=== PATIENT | male | born 1935 | race Caucasian/White ===

== ENCOUNTER 2016-12-19 00:28 | Inpatient (IN) | payer MEDICARE ==
[~2016-12-19] VITALS: Ht 170.2 cm; Wt 103.2 kg
[~2016-12-19 00:28] MED LIST: ACETAMINOPHEN500 MG PO; AMLODIPINE BESY10 MG PO; CENTRUM1 TAB PO; CLONAZEPAM1 MG PO; GLIPIZIDE5 MG PO; LOSARTAN POTAS100 MG PO; MAGNACAPS100 MG PO; SIMVASTATIN20 MG PO; TAMIFLU30 MG PO; TERAZOSIN HCL1 MG PO; TRAMADOL HCL50 MG PO; WARFARIN SODIUM5 MG PO; [UNRECOGNIZED DRUG - OTHER] PO
--- NOTE | 2016-12-19 03:06 | ED CLINICAL REPORT ---
Clinical Report - Physicians/Mid Levels [facility] [address] [place] [address] 12/19/2016 0:29 Patient: NOEMÍ SOMMER I Arrived- By ambulance. Historian- patient and EMS personnel. HISTORY OF PRESENT ILLNESS Chief Complaint: DYSPNEA. This started Past 2 days and is still present and worsening. It was abrupt in onset and has been constant but is not gone now. The dyspnea is described as moderate and is worsened by exertion and is improved by rest. The patient has had sputum production and a cough. No chest pain or discomfort, anxiety, tingling or numbness. He has had moderate right foot swelling. (patient reports to the right side of the leg is swollen for the past several weeks Patient reports that he had had a negative ultrasound of the right lower extremity. Patient was told by his doctor that it was "lymphedema. "). Similar symptoms previously: None. Recent medical care: The patient was seen recently in a clinic. REVIEW OF SYSTEMS No sore throat, nasal discharge, sinus drainage, nausea or vomiting. No headache. All systems otherwise negative, except as recorded above. PAST HISTORY See nurses notes. Medications: Metoprolol Tartrate Oral. Lasix Oral. Simvastatin Oral. TERAZOSIN HCl Oral. AmLODIPine Besylate Oral. ClonazePAM Oral. Coumadin Oral. Glipizide Oral. Losartan Potassium Oral. Magnesium Aspartate Oral. Allergies: No Known Drug Allergy. SOCIAL HISTORY Never smoker. No alcohol use or drug use. No recent travel. Is a local resident. ADDITIONAL NOTES The nursing notes have been reviewed. PHYSICAL EXAM Vital Signs: 12/19/2016 00:43 BP: 136/52. HR: 48. RR: 20. O2 saturation: 95%. Blood pressure normal. Oxygen saturation normal. Appearance: Alert. No acute distress. Eyes: Pupils equal, round and reactive to light. Eyes normal inspection. ENT: Ears normal. Nose normal. Pharynx normal. Uvula midline. Neck: Normal inspection. No jugular venous distention. Neck supple. No JVD. CVS: Bradycardia. Heart sounds normal. Pulses normal. Rhythm normal. Respiratory: No respiratory distress. No respiratory distress. Breath sounds normal. No splinting, wheezes, stridor, rales or rhonchi. Abdomen: Soft and nontender. No organomegaly. Back: Normal inspection. Skin: Skin warm and dry. Normal skin color. No rash. Normal skin turgor. Extremities: Bilateral moderate pitting edema of the lower extremities; 3+ pitting edema of the right lower extremity; 2+ pitting edema of the left lower extremity. Extremities exhibit normal ROM. No calf tenderness. Neuro: Oriented X 3. No motor deficit. No sensory deficit. LABS, X-RAYS, AND EKG EKG: Abnormal rhythm present. Narrow-complex bradycardia. Abnormal P waves. Normal ST and T waves, QT and QTc. Unable to see P waves. Slow a fib or heart block. The study has been interpreted contemporaneously by me. The study has been independently viewed by me. The EKG appears to be a good tracing. Chest X-ray: No acute disease. Great vessels normal. No infiltrate. Views: PA. Technique: good. The X-rays were independently viewed by me and interpreted contemporaneously by me. CTA Pulmonary Arteries: right lung PE, small. No other acute osseous abnormalities. The study was independently viewed by me and interpreted by the radiologist. The study was discussed with the radiologist (via fax). Laboratory Tests: CBC w Diff: (KONRAD: 12/19/2016 00:36) ( MsgRcvd 12/19/2016 00:46) Final results Test Result Flag Units (Reference) WHITE BLOOD COUNT 4.1 L K/uL (4.5-11.5) RED BLOOD COUNT 2.86 L M/uL (4.50-5.90) HEMOGLOBIN 9.4 L gm/dL (13.5-17.5) HEMATOCRIT 28.3 L % (41.0-53.0) MEAN CELL VOLUME 99 fL (80-100) MEAN CORPUSCULAR HGB 33 pg (26-34) MEAN CORPUSCULAR HGB CONC 33 g/dL (31-37) RED CELL DISTRIBUTION WIDTH 18.5 H % (11.6-14.8) PLATELET COUNT 152 K/uL (150-400) NEUTROPHIL % 74.0 % (50-75) LYMPH % 12.3 L % (25-40) MONO % 11.4 % (3-14) EOSINOPHIL % 1.9 % (0-4) BASOPHIL % 0.4 % (0-2) PT with INR: (KONRAD: 12/19/2016 00:36) ( [facility] [place] 12/19/2016 00:56) Final results Test Result Flag Units (Reference) INR 3.1 H (0.8-1.2) Low Intensity Therapy: INR 1.5-2.0 PT range 18.5-23.1Mod.Intensity Therapy: INR 2.0-3.0 PT range 23.1-31.5High Intensity Therapy: INR 2.5-3.5 PT range 27.4-35.5High Intensity Therapy 2: INR 3.0-4.0 PT range 31.5-39.3 APTT 43 H SECONDS (24-34) D-DIMER QUANTITATIVE 2.20 H ug/mLFEU (0.27-0.52) The primary value of this quantitative assay relates toits negative predictive value (i.e. exclusion) of pulmonaryembolism/deep vein thrombosis/DIC.Elevated levels of d-dimer may also occur with:, age, cancer, inflammation, liver disease,post-op, infection, hematoma, coronary disease, peripheralarteriopathy, bleeding disorders and thrombolytic treatment.Results should be correlated with other clinical andradiological data.Testing Methodology: Latex Immunoassay BNP: (KONRAD: 12/19/2016 00:36) ( [facility] [place] 12/19/2016 01:05) Final results Test Result Flag Units (Reference) B-TYPE NATRIURETIC PEPTIDE 795 H pg/ml (5-100) CMP: (KONRAD: 12/19/2016 00:36) ( [facility] [place] 12/19/2016 01:02) Final results Test Result Flag Units (Reference) GLUCOSE 137 H mg/dL (70-110) BUN 42 H mg/dL (7-18) CREATININE 1.5 H mg/dL (0.6-1.3) Estimated GFR 47.50 mL/min Estimated GFR- 57.57 mL/min Note: Persistent reduction over 3 months in eGFR<60 mL/min/1.73 m2 defines CKD. Patients with eGFR values>=60 mL/min/1.73 m2 may also have CKD if evidence ofpersistent proteinuria. Additional information may be foundat [email or web address].org. SODIUM 143 mmol/L (136-145) POTASSIUM 4.5 mmol/L (3.5-5.1) CHLORIDE 109 H mmol/L (98-107) CARBON DIOXIDE 26 mmol/L (21-32) CALCIUM 8.1 L mg/dL (8.5-10.1) TOTAL PROTEIN 6.3 L g/dL (6.4-8.2) ALBUMIN 3.1 L g/dL (3.3-5.0) BILIRUBIN, TOTAL 0.3 mg/dL (0.0-1.0) ALKALINE PHOSPHATASE 110 U/L (46-116) AST (SGOT) 33 U/L (15-37) ALT (SGPT) 40 U/L (12-78) TROPONIN I <0.05 ng/mL (0.00-1.5) TROPONIN REFERENCE RANGE:<0.1 NEGATIVE0.1-1.5 INDETERMINANT>1.5 POSITIVE . Pulse Oximetry: 12/19/2016 03:14 O2 saturation: 94%. Interpretation: normal. PROGRESS AND PROCEDURES Course of Care: patient is an 81-year-old male with complex past medical history including atrial fibrillation, pulmonary fibrosis, hypertension, sleep apnea, and heart failure resenting for evaluation of shortness of breath. Patient is not reporting any chest pain on examination. In further discussion with patient, patient was recently started on metoprolol. Patient was recently admitted to the hospital over at [place] for back surgery. Patient describes spinal hematoma. Patient does not have any signs of neurovascular compromise at this time. Patient will be evaluated laboratory studies including EKG and chest x-ray. Patient is agreeable to the treatment plan. We'll also evaluate the patient's lower extremities for any signs of DVT. Patient has had 1 ultrasound of the right lower extremity for DVT. Based on current guidelines, ultrasound should be repeated. Patient's workup is otherwise unremarkable. Troponin is noted to be normal. D-dimer is elevated however. Patientwill need CT scan of thechest for evaluation of any acute intrathoracic process. Patient is noted to be severely bradycardic. Patient's has been otherwise hemodynamically normal. Patient has normal mentation. Pacer pads in place on the patient in case patient becomes unstable. Do not feelwe need to intervene with atropine or transcutaneous pacing at this time as the patient has good blood pressure and is having a normal mentation. Other etiologies for his shortness of breath more likely impending workup. Workup shows patient to have a pulmonary embolism on the right side of the chest. No other acute abnormalities noted. No pneumonia. Patient likely with shortness of breath secondary to pulmonary embolism as well as hypotension frombradycardia. Nitroglycerin has been given for the elevation in BNP which also should cause a reflex tachycardia and improved patient's symptoms in the emergency department. Because the patient's current symptoms, would feel patient needs to be admitted to the hospital. Patient with symptomatic bradycardia. Spoke with hospitalist will admit the patient. Patient is also on warfarin. Patient does not need any further treatment here in the emergency department forPE. Patient is noted to have an INR 3.1. Discussed with patient workup, diagnosis, and plan of care. All questions answered. The patient expressed understanding of these instructions and was agreeable to them. The patient was admitted without complication. Do not feel patient needs to be admitted to the intensive care unit. Patient is a no code. Critical care performed (60 minutes). Time is exclusive of separately billable procedures. Time includes: direct patient care, patient reassessment, coordination of patient care, interpretation of data (laboratory data, pulse oximetry and chest xrays), review of patient's medical records, medical consultation and documentation of patient care. Disposition: Discharged. Condition: good. CLINICAL IMPRESSION symptomatic bradycardia, acute acute pulmonary embolism right lung a fib, chronic dyspnea acute. (Electronically signed by Christos Davis Dr. 12/19/2016 8:06)
--- NOTE | 2016-12-19 03:06 | ED NURSING NOTES ---
Clinical Report - Nurses [facility] [address] [place] [address] 12/19/2016 0:29 Patient: NOEMÍ SOMMER I TRIAGE Triage time 0040. Acuity: LEVEL 2. Chief Complaint: SHORTNESS OF BREATH and DIFFICULTY BREATHING. Alert. No acute distress. (dyspnic). --00:48 Muna Menendez 00:43 12/19/16. BP: 136/52. HR: 48. RR: 20. O2 saturation: 95%. Pain level now 0/10. --00:48 Muna Menendez 00:51 12/19/16. Temp: 98.0 F. --00:51 Muna Menendez. Weight: 104.3 kg. Height/Length: 66.5 inches. BMI: 36.6. --00:42 Muna Menendez. Medications AmLODIPine Besylate Oral. ClonazePAM Oral. Coumadin Oral. Glipizide Oral. Losartan Potassium Oral. Magnesium Aspartate Oral. --00:44 Muna Menendez Simvastatin Oral. TERAZOSIN HCl Oral. --00:44 Muna Menendez Lasix Oral. --00:44 Muna Menendez Metoprolol Tartrate Oral. --00:44 Muna Menendez. Medication/allergy information source: the patient and patient's family. --00:48 Muna Menendez. Allergies No Known Drug Allergy. --00:44 Muna Menendez. History Arrived by EMS. Historian: patient. This started just prior to arrival. ( Quick onset of sob with laying back and walking few steps, called 911). He has had a nonproductive cough. Treatment LINE AND FRAME POLER: None. PAST MEDICAL HX: Immunizations: has received pneumonia vaccine; seasonal influenza: first dose. SOCIAL HX: Former smoker, end date 1966 (cigarette)- 1-2 packs per day. Regular alcohol use; consumes two wine daily. Last drink was less than 24 hours ago. Patient smells of ETOH in the emergency department. --00:48 Muna Menendez. PROBLEMS: Diabetes Mellitus. Hyperlipidemia. Prostate Cancer. Hypertension. Atrial Fibrillation. --00:45 Muna Menendez. ADDITIONAL SURGERIES: Appendectomy. Back Surgery. --00:45 Muna Menendez. Interventions ID band on patient. To treatment room. --00:48 Muna Menendez. PHYSICAL ASSESSMENT To room via stretcher. Patient gowned. GENERAL / NEURO / PSYCH: Alert. Oriented X 4. Appears in distress. HEENT: Mucous membranes are pink. RESPIRATORY: Moderate respiratory distress. The patient can speak a few words at a time. Cough. Decreased breath sounds. CVS: Cardiac rhythm: sinus bradycardia. GI / : Abdomen soft. Abdominal tenderness (c/o bloating). Bowel sounds within normal limits. SKIN: Skin is warm and dry. Normal skin turgor. --00:53 Muna Menendez. NURSING PROGRESS NOTES 00:38 12/19/2016 Site #1 started via IV in the right antecubital space with an 18g angiocath, with aseptic technique and good blood return; one attempt. Blood drawn: rainbow set. Labeled in the presence of the patient and sent to the lab. Saline lock flushed with 10 mL saline. --00:44 Frederic Vee, RBlanca. bus driver/monitor, pulse oximeter and NIBP monitor placed on patient; monitor alarms on. EKG time: (0050). EKG was performed by a tech and shown to the ED physician. Patient gowned. Reassurance given. Two patient identifiers checked. Call light placed in reach. Side rails up x 2. Bed placed in lowest position. Brakes of bed on. Patient ready for evaluation- chart flagged and ED physician notified. ( Crash cart to room, pt placed on pacer pads). --00:54 Muna Menendez 01:10. ( US here for doppler). --02:12 Muna Menendez 02:00. ( Pt to CTA). --02:11 Muna Menendez Monitoring of patient in place. Reassurance given. ( Pt back from CT without incidence). Patient and family informed about reason for wait and about plan of care. Patient waiting for radiology and CT results. --02:26 Muna Menendez 02:37 12/19/2016 Nitroglycerin SL 0.4 mg given. Allergies verified and confirmed 5 rights. --02:37 Muna Menendez 01:45 12/19/16. BP: 134/45. HR: 44. RR: 16. O2 saturation: 94%. --03:12 Muna Menendez 01:15 12/19/16. BP: 135/49. HR: 42. RR: 16. O2 saturation: 95%. --03:13 Muna Menendez Reassessment after medication administered. He has had no adverse reaction. Overall patient status is improved- he states feels the same. ( Ac=verage HR now in the low 50's, Provider aware). --03:14 Muna Menendez 03:14 12/19/16. BP: 143/80. HR: 51. RR: 16. O2 saturation: 94%. --03:15 Muna Menendez 02:16 12/19/16. BP: 142/62. HR: 50. RR: 16. O2 saturation: 95%. --03:16 Muna Menendez The patient is resting quietly and sleeping. Patient informed about plan of care. Patient waiting for admit bed. --03:17 Muna Menendez ( Pt sleeping heavily, noted to go down to 87% on RA, known to have sleep apnea, daughter getting c pap, pt placed on O2 4l NC, Provider aware). --03:39 Muna Menendez 03:00 12/19/16. BP: 162/43. HR: 50. RR: 16. --03:49 Muna Menendez. DISPOSITION / DISCHARGE Condition at departure: improved and stable. Transported via stretcher by [facility]. Report was given to a nurse via a phone call. Report included patient's care, treatment, medications, reviewed medication reconcilliation, and condition (including any recent changes or anticipated changes). All questions were answered. Report was acknowledged and care was transferred. Patient's personal items; items were placed in belongings bag and transported with the patient. --03:50 Muna Menendez. Locked/Released at 12/19/2016 4:02 by Muna Menendez,
--- NOTE | 2016-12-19 03:06 | ED ORDER SUMMARY ---
..... Patient: NOEMÍ SOMMER I OrderSheet [facility] VisitID: [id number] [place] [address] 81y, M Registration Date/Time: 12/19/2016 ORDER SHEET Weight: 104.3 kg Allergies: No Known Drug Allergy GENERAL ORDERS: Chest 1V Urgent (00:36 12/19/2016 Abimael Han) (Ack 0:41 CHagerty ER Director Of Design) (1:01 CHagerty ER Director Of Design) Art Display Maker (Continuous) (SOB) (00:37 12/19/2016 Abimael Han) (Ack 0:41 CHagerty ER Director Of Design) (0:44 JQuivey R.N.) CBC w Diff Urgent (00:12/19/2016 Abimael Han) (Ack 0:41 CHagerty ER Director Of Design) (0:55 EBonham) CMP Urgent (00:12/19/2016 Abimael Han) (Ack 0:41 CHagerty ER Director Of Design) (0:55 EBonham) UA-Culture if indicated Urgent (00:37 12/19/2016 Abimael Han) (Ack 0:41 CHagerty ER Director Of Design) PT with INR Urgent (00:12/19/2016 Abimael Han) (Ack 0:41 CHagerty ER Director Of Design) (0:55 EBonham) PTT Urgent (00:12/19/2016 Abimael Han) (Ack 0:41 CHagerty ER Director Of Design) (0:55 EBonham) D-Dimer Urgent (00:37 12/19/2016 Abimael Han) (Ack 0:41 CHagerty ER Director Of Design) (0:55 EBonham) Troponin-I Urgent (00:12/19/2016 Abimael Han) (Ack 0:41 CHagerty ER Director Of Design) (0:55 EBonham) BNP Urgent (00:12/19/2016 Abimael Han) (Ack 0:41 CHagerty ER Director Of Design) (0:55 EBonham) Pulse oximeter (00:12/19/2016 Abimael Han) (Ack 0:41 CHagerty ER Director Of Design) (0:44 JQuivey R.N.) EKG - ER Stat (00:37 12/19/2016 Abimael Han) (Ack 0:41 CHagerty ER Director Of Design) (0:44 JQuivey R.N.) US Venous Bilat Urgent (00:37 12/19/2016 Abimael Han) (Ack 0:41 CHagerty ER Director Of Design) (1:10 EBonham) CTA Thorax w Cont (Yes) (GFR 45 - 55) Urgent (01:30 12/19/2016 Abimael Han) (Ack 1:40 CHagerty ER Director Of Design) (2:21 Amy) MEDICATION ORDERS: NitroGLYCERIN SL 0.4 mg (once now. Hold for SBP < 110 or MAP < 65) (02:27 12/19/2016 Abimael Han) (2:[facility] IV FLUIDS: IV Saline Lock (00:37 12/19/2016 Abimael Han) (0:44 JQuivey R.N.) ORDER SHEET NOTES: [Electronically signed by Muna Menendez (04:02 12/19/2016)] [Electronically signed by Christos Davis Dr. (08:06 12/19/2016)] [Electronically locked/signed by Muna Menendez (04:02 12/19/2016)]
--- NOTE | 2016-12-19 03:06 | ED ORDER SUMMARY ---
..... Patient: NOEMÍ SOMMER I OrderSheet [facility] VisitID: [id number] [place] [address] 81y, M Registration Date/Time: 12/19/2016 ORDER SHEET Weight: 104.3 kg Allergies: No Known Drug Allergy GENERAL ORDERS: Chest 1V Urgent (00:36 12/19/2016 Abimael Han) (Ack 0:41 CHagerty ER Herb Grower) (1:01 CHagerty ER Herb Grower) Department Mgr (Continuous) (SOB) (00:37 12/19/2016 Abimael Han) (Ack 0:41 CHagerty ER Herb Grower) (0:44 JQuivey R.N.) CBC w Diff Urgent (00:12/19/2016 Abimael Han) (Ack 0:41 CHagerty ER Herb Grower) (0:55 EBonham) CMP Urgent (00:12/19/2016 Abimael Han) (Ack 0:41 CHagerty ER Herb Grower) (0:55 EBonham) UA-Culture if indicated Urgent (00:37 12/19/2016 Abimael Han) (Ack 0:41 CHagerty ER Herb Grower) PT with INR Urgent (00:12/19/2016 Abimael Han) (Ack 0:41 CHagerty ER Herb Grower) (0:55 EBonham) PTT Urgent (00:12/19/2016 Abimael Han) (Ack 0:41 CHagerty ER Herb Grower) (0:55 EBonham) D-Dimer Urgent (00:37 12/19/2016 Abimael Han) (Ack 0:41 CHagerty ER Herb Grower) (0:55 EBonham) Troponin-I Urgent (00:12/19/2016 Abimael Han) (Ack 0:41 CHagerty ER Herb Grower) (0:55 EBonham) BNP Urgent (00:12/19/2016 Abimael Han) (Ack 0:41 CHagerty ER Herb Grower) (0:55 EBonham) Pulse oximeter (00:12/19/2016 Abimael Han) (Ack 0:41 CHagerty ER Herb Grower) (0:44 JQuivey R.N.) EKG - ER Stat (00:37 12/19/2016 Abimael Han) (Ack 0:41 CHagerty ER Herb Grower) (0:44 JQuivey R.N.) US Venous Bilat Urgent (00:37 12/19/2016 Abimael Han) (Ack 0:41 CHagerty ER Herb Grower) (1:10 EBonham) CTA Thorax w Cont (Yes) (GFR 45 - 55) Urgent (01:30 12/19/2016 Abimael Han) (Ack 1:40 CHagerty ER Herb Grower) (2:21 Amy) MEDICATION ORDERS: NitroGLYCERIN SL 0.4 mg (once now. Hold for SBP < 110 or MAP < 65) (02:27 12/19/2016 Abimael Han) (2:37 [facility]) IV FLUIDS: IV Saline Lock (00:37 12/19/2016 Abimael Han) (0:44 JQuivey R.N.) ORDER SHEET NOTES: [Electronically signed by Muna Menendez (04:02 12/19/2016)] [Electronically signed by Christos Davis Dr. (08:06 12/19/2016)] [Electronically locked/signed by Muna Menendez (04:02 12/19/2016)]
--- NOTE | 2016-12-19 03:06 | ED NURSING NOTES ---
Clinical Report - Nurses [facility] [address] [place] [address] 12/19/2016 0:29 Patient: NOEMÍ SOMMER I TRIAGE Triage time 0040. Acuity: LEVEL 2. Chief Complaint: SHORTNESS OF BREATH and DIFFICULTY BREATHING. Alert. No acute distress. (dyspnic). --00:48 Muna Menendez 00:43 12/19/16. BP: 136/52. HR: 48. RR: 20. O2 saturation: 95%. Pain level now 0/10. --00:48 Muna Menendez 00:51 12/19/16. Temp: 98.0 F. --00:51 Muna Menendez. Weight: 104.3 kg. Height/Length: 66.5 inches. BMI: 36.6. --00:42 Muna Menendez. Medications AmLODIPine Besylate Oral. ClonazePAM Oral. Coumadin Oral. Glipizide Oral. Losartan Potassium Oral. Magnesium Aspartate Oral. --00:44 Muna Menendez Simvastatin Oral. TERAZOSIN HCl Oral. --00:44 Muna Menendez Lasix Oral. --00:44 Muna Menendez Metoprolol Tartrate Oral. --00:44 Muna Menendez. Medication/allergy information source: the patient and patient's family. --00:48 Muna Menendez. Allergies No Known Drug Allergy. --00:44 Muna Menendez. History Arrived by EMS. Historian: patient. This started just prior to arrival. ( Quick onset of sob with laying back and walking few steps, called 911). He has had a nonproductive cough. Treatment PRODUCTION SUPERVISOR: None. PAST MEDICAL HX: Immunizations: has received pneumonia vaccine; seasonal influenza: first dose. SOCIAL HX: Former smoker, end date 1966 (cigarette)- 1-2 packs per day. Regular alcohol use; consumes two wine daily. Last drink was less than 24 hours ago. Patient smells of ETOH in the emergency department. --00:48 Muna Menendez. PROBLEMS: Diabetes Mellitus. Hyperlipidemia. Prostate Cancer. Hypertension. Atrial Fibrillation. --00:45 Muna Menendez. ADDITIONAL SURGERIES: Appendectomy. Back Surgery. --00:45 Muna Menendez. Interventions ID band on patient. To treatment room. --00:48 Muna Menendez. PHYSICAL ASSESSMENT To room via stretcher. Patient gowned. GENERAL / NEURO / PSYCH: Alert. Oriented X 4. Appears in distress. HEENT: Mucous membranes are pink. RESPIRATORY: Moderate respiratory distress. The patient can speak a few words at a time. Cough. Decreased breath sounds. CVS: Cardiac rhythm: sinus bradycardia. GI / : Abdomen soft. Abdominal tenderness (c/o bloating). Bowel sounds within normal limits. SKIN: Skin is warm and dry. Normal skin turgor. --00:53 Muna Menendez. NURSING PROGRESS NOTES 00:38 12/19/2016 Site #1 started via IV in the right antecubital space with an 18g angiocath, with aseptic technique and good blood return; one attempt. Blood drawn: rainbow set. Labeled in the presence of the patient and sent to the lab. Saline lock flushed with 10 mL saline. --00:44 Frederic Vee, RBlanca. engine monitor, pulse oximeter and NIBP monitor placed on patient; monitor alarms on. EKG time: (0050). EKG was performed by a tech and shown to the ED physician. Patient gowned. Reassurance given. Two patient identifiers checked. Call light placed in reach. Side rails up x 2. Bed placed in lowest position. Brakes of bed on. Patient ready for evaluation- chart flagged and ED physician notified. ( Crash cart to room, pt placed on pacer pads). --00:54 Muna Menendez 01:10. ( US here for doppler). --02:12 Muna Menendez 02:00. ( Pt to CTA). --02:11 Muna Menendez Monitoring of patient in place. Reassurance given. ( Pt back from CT without incidence). Patient and family informed about reason for wait and about plan of care. Patient waiting for radiology and CT results. --02:26 Muna Menendez 02:37 12/19/2016 Nitroglycerin SL 0.4 mg given. Allergies verified and confirmed 5 rights. --02:37 Muna Menendez 01:45 12/19/16. BP: 134/45. HR: 44. RR: 16. O2 saturation: 94%. --03:12 Muna Menendez 01:15 12/19/16. BP: 135/49. HR: 42. RR: 16. O2 saturation: 95%. --03:13 Muna Menendez Reassessment after medication administered. He has had no adverse reaction. Overall patient status is improved- he states feels the same. ( Ac=verage HR now in the low 50's, Provider aware). --03:14 Muna Menendez 03:14 12/19/16. BP: 143/80. HR: 51. RR: 16. O2 saturation: 94%. --03:15 Muna Menendez 02:16 12/19/16. BP: 142/62. HR: 50. RR: 16. O2 saturation: 95%. --03:16 Muna Menendez The patient is resting quietly and sleeping. Patient informed about plan of care. Patient waiting for admit bed. --03:17 Muna Menendez ( Pt sleeping heavily, noted to go down to 87% on RA, known to have sleep apnea, daughter getting c pap, pt placed on O2 4l NC, Provider aware). --03:39 Muna Menendez 03:00 12/19/16. BP: 162/43. HR: 50. RR: 16. --03:49 Muna Menendez. DISPOSITION / DISCHARGE Condition at departure: improved and stable. Transported via stretcher by [employer]. Report was given to a nurse via a phone call. Report included patient's care, treatment, medications, reviewed medication reconcilliation, and condition (including any recent changes or anticipated changes). All questions were answered. Report was acknowledged and care was transferred. Patient's personal items; items were placed in belongings bag and transported with the patient. --03:50 Muna Menendez. Locked/Released at 12/19/2016 4:02 by Muna Menendez,
[2016-12-19 04:39] VITALS: BP 157/50
[2016-12-19 07:57] VITALS: BP 143/61
--- NOTE | 2016-12-19 07:59 | DIAGNOSTIC IMAGING REPORT ---
PROCEDURE: XR CHEST 1 VIEW INDICATION: SOB, initial encounter TECHNIQUE: Portable AP view 12:56 a.m. COMPARISON: Chest x-ray 01/29/2016 FINDINGS: Poor inspiration with moderate elevation of the right hemidiaphragm. Minor right basilar atelectasis. Stable mild cardiomegaly. Mediastinum and pulmonary vessels are normal. Moderate degenerative changes of the left glenohumeral joint. IMPRESSION: 1. Poor inspiration with elevation of the right hemidiaphragm and right basilar atelectasis 2. Cardiomegaly
--- NOTE | 2016-12-19 08:00 | DIAGNOSTIC IMAGING REPORT ---
PROCEDURE: US VENOUS - BILATERAL EXT INDICATION: SWELLING TECHNIQUE: Color Doppler duplex imaging of the deep and superficial venous system without and with compression. COMPARISON: None. FINDINGS: RIGHT LOWER EXTREMITY: Deep and superficial venous system of the right lower extremity is within normal limits. There is no evidence of deep vein thrombosis or superficial thrombophlebitis. LEFT LOWER EXTREMITY: Deep and superficial venous system of the left lower extremity is within normal limits. There is no evidence of deep vein thrombosis or superficial thrombophlebitis. IMPRESSION: 1. Negative venous ultrasound of the bilateral lower extremities.
--- NOTE | 2016-12-19 08:06 | ED DISCHARGE INSTRUCTIONS ---
Patient: NOEMÍ SOMMER I General Instructions [facility] VisitID: [id number] [address] [place] [address] 81y, M Registration Date/Time: 12/19/2016 symptomatic bradycardia, acute acute pulmonary embolism right lung a fib, chronic dyspnea acute. (Electronically signed by Christos Davis Dr. 12/19/2016 8:06)
--- NOTE | 2016-12-19 08:06 | ED MED RECONCILIATION SUMMARY ---
Patient: NOEMÍ SOMMER I Medication Reconciliation Report [facility] VisitID: [id number] [address] [place] [address] 81y, M Registration Date/Time: 12/19/2016 Weight: 104.3 kg Height/Length: 60 in. BMI: 36.6 ALLERGIES: No Known Drug Allergy The patient's Home Medications are listed below: THE FOLLOWING MEDICATIONS NEED TO BE RECONCILED: AmLODIPine Besylate Oral ClonazePAM Oral Coumadin Oral Glipizide Oral Lasix Oral Losartan Potassium Oral Magnesium Aspartate Oral Metoprolol Tartrate Oral Simvastatin Oral TERAZOSIN HCl Oral The source(s) of the original Home Medication information: patient patient's family member The following Medications were given to the patient in the Emergency Department: Nitroglycerin [SL] SL 0.4 mg, administered: 12/19/2016 2:37:00 AM The following Medications were prescribed to the patient: None.
--- NOTE | 2016-12-19 08:06 | ED MED RECONCILIATION SUMMARY ---
Patient: NOEMÍ SOMMER I Medication Reconciliation Report [facility] VisitID: [id number] [address] [place] [address] 81y, M Registration Date/Time: 12/19/2016 Weight: 104.3 kg Height/Length: 60 in. BMI: 36.6 ALLERGIES: No Known Drug Allergy The patient's Home Medications are listed below: THE FOLLOWING MEDICATIONS NEED TO BE RECONCILED: AmLODIPine Besylate Oral ClonazePAM Oral Coumadin Oral Glipizide Oral Lasix Oral Losartan Potassium Oral Magnesium Aspartate Oral Metoprolol Tartrate Oral Simvastatin Oral TERAZOSIN HCl Oral The source(s) of the original Home Medication information: patient patient's family member The following Medications were given to the patient in the Emergency Department: Nitroglycerin [SL] SL 0.4 mg, administered: 12/19/2016 2:37:00 AM The following Medications were prescribed to the patient: None.
--- NOTE | 2016-12-19 08:06 | ED MAR SUMMARY ---
..... Medication Administration Record [facility] [address] [place] [address] Patient: NOEMÍ SOMMER I Visit ID: [id number] 81y, M Weight: 104.3 kg Height/Length: 66.5 in BMI: 36.6 ALLERGIES: No Known Drug Allergy Given 02:37 12/19/2016 Muna Menendez, Medication Administered: NITROGLYCERIN [SL], Dose: 0.4 mg SL. Medication Ordered: NitroGLYCERIN SL 0.4 mg (once now. Hold for SBP < 110 or MAP < 65).
--- NOTE | 2016-12-19 08:06 | ED DISCHARGE INSTRUCTIONS ---
Patient: NOEMÍ SOMMER I General Instructions [facility] VisitID: [id number] [address] [place] [address] 81y, M Registration Date/Time: 12/19/2016 symptomatic bradycardia, acute acute pulmonary embolism right lung a fib, chronic dyspnea acute. (Electronically signed by Christos Davis Dr. 12/19/2016 8:06)
--- NOTE | 2016-12-19 08:06 | ED MAR SUMMARY ---
..... Medication Administration Record [facility] [address] [place] [address] Patient: NOEMÍ SOMMER I Visit ID: [id number] 81y, M Weight: 104.3 kg Height/Length: 66.5 in BMI: 36.6 ALLERGIES: No Known Drug Allergy Given 02:37 12/19/2016 Muna Menendez, Medication Administered: NITROGLYCERIN [SL], Dose: 0.4 mg SL. Medication Ordered: NitroGLYCERIN SL 0.4 mg (once now. Hold for SBP < 110 or MAP < 65).
--- NOTE | 2016-12-19 08:47 | DIAGNOSTIC IMAGING REPORT ---
PROCEDURE: CTA THORAX WITH CONTRAST INDICATION: SOB, LEG SWELLING, ELEVATED D-DIMER TECHNIQUE: of Isovue 370 was injected intravenously and axial images were obtained of the entire thorax with 3D sagittal and coronal MIP reconstructions. COMPARISON: None. FINDINGS: Single small filling defect in a right lower lobe branch (series 5, image 64 and series 602, image 49). Mild bibasilar atelectasis. Left lower lobe calcified granuloma with calcified left hilar lymph nodes. Several prominent mediastinal and bilateral hilar lymph nodes. Cardiomegaly with small bilateral pleural effusions. No aortic dissection or aneurysm. Extensive coronary atherosclerosis. Small ascites. Calcified splenic granulomas. Mild anasarca. IMPRESSION: 1. Findings suspicious for a small pulmonary embolus to the right lower lobe 2. Cardiomegaly with small bilateral pleural effusions, ascites and mild anasarca suggestive of CHF/fluid overload 3. Old granulomatous disease 4. Preliminary results submitted by Dr. Fairbanks, [facility] radiology.
--- NOTE | 2016-12-19 09:05 | HISTORY AND PHYSICAL ---
ADMITTED: 12/19/2016 CHIEF COMPLAINT: 1. Shortness of breath HISTORY OF PRESENT ILLNESS: The patient is an 81-year-old white male who was brought into the emergency department tonight for evaluation of difficulties with shortness of breath. This has been a problem that has been gradually worsening over the last several days. He has had a slight dry cough, particularly over the last 24 hours or so. He apparently spent about 2 hours in the night of 12/17/2016 to 12/18/2016 sitting up reading due to restlessness and shortness of breath. He has had some decreased exercise tolerance during the day. He denies chest pain. He has had no fever or chills. He does have a history of chronic atrial fibrillation and is on Coumadin. He has had no obvious bleeding. He has been started on metoprolol several weeks ago when he was discharged from [facility] to a [facility] for recovery following back surgery. In addition to shortness of breath, he has noticed quite significant lower abdominal wall and penile and scrotal edema, developing over the last week or so. MEDICAL/SURGICAL HISTORY: Past medical history is remarkable for chronic atrial fibrillation, hypertension, prostate cancer, spinal stenosis, adult-onset diabetes, sleep apnea, [id number] COPD with some slight pulmonary fibrosis , chronic lymphedema of the left lower extremity following a surgical procedure on the left groin area in 195. Surgical history remarkable for an appendectomy done a child. He also had a left inguinal hernia repair done in 1958 which resulted in the problem with the lymphedema of the left leg. Other surgeries include a lumbar laminectomy recently on 10/30/2016 done at [facility] in [place]. He did well initially but then developed a hematoma in the lower back area at the surgical site and had to be taken back to surgery around 11/07 2016 to 11/08/2016 for evacuation of the hematoma. He subsequently was discharged to a [facility] and then was discharged home to his apartment about 3 or 4 weeks ago. MEDICATIONS: 1. Amlodipine 10 mg daily. 2. Clonazepam 1 mg at bedtime. 3. Glipizide 5 mg morning and evening for blood sugar control 4. Losartan 100 mg daily for blood pressure control. 5. Magnesium 100 mg capsules twice daily. 6. Centrum vitamins. 7. Maxie-3 fatty acids 1 cap daily. 8. He also apparently has been on Tamiflu recently, but I think he is finished with this. 9. Simvastatin 20 mg at bedtime. 10. Terazosin 10 mg at bedtime. 11. Tramadol 50 mg every 4 hours for pain not controlled by plain Tylenol. 12. Warfarin 5 mg p.o. daily. 13. He has also been on furosemide 40 mg daily. 14. Metoprolol succinate 50 mg daily. ALLERGIES: 1. GABAPENTIN. 2. TIZANTIDINE. SOCIAL HISTORY: The patient is . He has been living independently [facility]. He has a daughter living in the area who is quite attentive to him. Additionally, he is a former smoker and quit about 48 years ago. He drinks about 1 glass of wine per day, mostly in the evening. 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 FAMILY HISTORY: Remarkable for a father who in his late 70s of heart attack. The patient's mother in her early 70s of colitis. REVIEW OF SYSTEMS: HEENT has been okay. Respiratory is as noted above. Cardiovascular is as noted above. He has had no chest pain issues. Gastrointestinal is okay with no major stomach upset issues or gastrointestinal bleeding or bowel movement problems. Genitourinary is okay, though the patient does mention having some difficulty passing urine. He wonders if he might need a catheter. Musculoskeletal is okay with chronic lymphedema in the left lower extremity. Neurologic has been okay. Psychiatric has been okay with no depression. Skin has been okay. PHYSICAL EXAMINATION: GENERAL: Reveals the patient to be an elderly gentleman in no severe distress, though somewhat dyspneic at rest with respiratory rate about 20. Pulse rate is in the 40s. Blood pressure is in the 150/50 range. Oxygen saturations 95% on 2 L per minute. The patient is alert and talkative. HEENT: Head is normal. Ear canals and tympanic membranes are normal. Eyes show pupils equal, round, and reactive. Normal extraocular movements. Nose and throat are clear. NECK: Carotid pulses are normal. No distinct bruits are heard. CHEST: Reveals a few faint rales in the bases with decreased breath sounds in the bases. There is no wheezing. I:E ratio is about 1:1. HEART: Reveals bradycardia with an irregular rhythm. There is a grade 1-2/6 systolic murmur along the left sternal border. There is a grade 1/6 systolic murmur at the apex radiating towards the axilla. ABDOMEN: Nontender and is obese. There is some moderate edema of the lower abdominal wall fluid and fluid extending into the scrotum and shaft of the penis. RECTAL: Not done. EXTREMITIES: Show +1 to +2 edema of the right lower leg and +3 to +4 edema in the left lower leg. NEUROLOGIC: Reveals the patient to be alert and oriented x3. Cranial nerves are normal. Motor and sensory exams are normal. LAB/IMAGING: Laboratory studies show sodium to be 143, potassium 4.5, chloride 109, CO2 of 26, glucose 139, creatinine 1.5, BUN 42, SGOT is 33, SGPT 40. Alkaline phosphatase is 110. Troponin I is less than 0.05. BNP is 795. PT INR is 3.1. D-dimer is 2.20. Chest x-ray shows mild cardiomegaly with no definite infiltrate and no pronounced pulmonary congestion. Chest CT pulmonary angiogram shows bilateral patchy atelectasis in the lower lung quinones. There are small pleural effusions bilaterally. There is a probable blood clot in the right o pulmonary artery in the lower lobe area suspicious for pulmonary embolus. IMPRESSION: 1. The patient is presenting with dyspnea and fluid retention and bradycardia. This is most likely related to metoprolol and may be causing significant decreased cardiac output and leading to the most present symptoms. He is adequately anticoagulated with warfarin. The pulmonary embolus that is showing up may be old and not necessarily acute. Clinically, the patient seems to be having more of a problem with cardiac output issues other than pulmonary emboli. 2. Other problems include renal insufficiency with both acute and chronic components most likely. 3. He continues with chronic atrial fibrillation. 4. He has underlying sleep apnea. 5. He also has adult-onset diabetes. 6. He has a remote history of prostate cancer treated with radiation and some subjective problems with urine flow. PLAN: The patient is admitted and will be placed on telemetry. He may benefit from diuresis with the addition of metolazone and IV Lasix to see if this will be helpful at all and not elevate his BUN and creatinine substantially. Additionally, he has some mild anemia and stool samples will be checked for occult blood. He will have urine outflow monitored and may possibly need a Lopez catheter if he starts to have difficulty passing his urine. He will continue CPAP for the sleep apnea issues, provided he is able to tolerate this. He will continue with Coumadin and Coumadin dose will be reduced to 2.5 mg Wednesday and Wednesday and 5 mg on other days. He will be placed on Accu-Chek monitoring to make sure blood sugars stay controlled. Projected hospital stay is at least 2 midnights and likely somewhat longer. CODE STATUS: THIS WAS DISCUSSED WITH THE PATIENT AND HIS DAUGHTER. HE AND SHE WOULD LIKE TO ATTEMPTED CARDIOPULMONARY RESUSCITATION BUT IF INITIAL CARDIOPULMONARY RESUSCITATION MAJORS ARE NOT EFFECTIVE AND IT SEEMS LIKE HE IS NOT LIKELY TO RESPOND THEN THEY WOULD PREFER NO FURTHER RESUSCITATIVE EFFORTS. WE WILL TRY TO FOLLOW THIS REQUEST IF THE SITUATION ARISES.
[2016-12-19 10:51] VITALS: BP 127/47
[2016-12-19 14:51] VITALS: BP 133/67
[2016-12-19 18:17] VITALS: BP 148/59
[2016-12-19 22:00] VITALS: BP 153/52
[2016-12-20] VITALS (7 sets, daily range): BP systolic 109–146; BP diastolic 40–54
--- NOTE | 2016-12-20 09:08 | Progress Note ---
Subjective General Feels about the same today. Still with SOB and significant LE and scrotal edema. HR has remained stable overnight in the 50-60's. Physical Exam Vital Signs / I&Os Vital Signs Date Time Temp Pulse Resp B/P Pulse O2 O2 Flow FiO2 Ox Delivery Rate 12/20 0632 97.9 51 24 146/49 98 Nasal 2.0 Cannula 12/20 0551 97 Nasal 2.0 Cannula 12/20 0548 Nasal 2.0 Cannula 12/20 0534 97.5 54 20 123/54 89 CPAP 12/20 0300 97.5 57 20 109/40 95 Nasal 2.0 Cannula 12/19 2200 97.9 50 20 153/52 96 Nasal 2.0 Cannula 12/19 2145 2.0 12/19 1817 98.2 54 20 148/59 96 Nasal Cannula 12/19 1451 97.3 55 20 133/67 98 Nasal 2.0 Cannula 12/19 1118 2.0 12/19 1051 97.3 42 20 127/47 96 Nasal 2.0 Cannula I&O 12/20 0000 12/19 1600 12/19 0800 Intake Total 1125 600 460 Output Total 1750 500 230 Balance -625 100 230 General Appearance Alert, Oriented X3, Cooperative, tachypnic but w/o accessory muscle use and able to speak in full sentences Lungs Expiratory wheezing throughout, slight crackles at bases. Neck Supple Cardiovascular miguel and irregular S1S2, no murmurs appreciated Abdomen Normal bowel sounds, Soft, No tenderness Extremities Lymphedema of LLE, 2-3+ RLE edema all the way up leg, significant scrotal edema Skin No Rashes Neurological No lateralizing signs LAB Results Laboratory Tests 12/20 12/20 12/19 0506 0500 1600 Chemistry Plasma Sodium (136 - 145 mmol/L) 141 Plasma Potassium (3.5 - 5.1 mmol/L) 4.6 Plasma Chloride (98 - 107 mmol/L) 105 CO2 (Enzymatic) (21 - 32 mmol/L) 28 BUN (7 - 18 mg/dL) 38 Creatinine (0.6 - 1.3 mg/dL) 1.2 Est GFR ( Amer) (mL/min) >60 Est GFR (Non-Af Amer) (mL/min) >60 Glucose (70 - 110 mg/dL) 175 Plasma Calcium (8.5 - 10.1 mg/dL) 8.0 Plasma Magnesium (1.8 - 2.4 mg/dL) 2.3 TSH 3rd Generation (0.30 - 3.74 uIU/mL) 1.725 Cancelled Coagulation INR (0.8 - 1.2) 3.9 Hematology WBC (4.5 - 11.5 K/uL) 4.9 RBC (4.50 - 5.90 M/uL) 2.86 Hgb (13.5 - 17.5 gm/dL) 9.2 Hct (41.0 - 53.0 %) 28.3 MCV (80 - 100 fL) 99 MCH (26 - 34 pg) 32 RDW (11.6 - 14.8 %) 19.5 Neut % (Auto) (50 - 75 %) 83.6 Lymph % (Auto) (25 - 40 %) 5.7 [place] % (Auto) (3 - 14 %) 9.2 Eos % (Auto) (0 - 4 %) 1.2 Baso % (Auto) (0 - 2 %) 0.3 Plt Count, EDTA (150 - 400 K/uL) 136 PUBS MCHC (31 - 37 g/dL) 32 Urines Urine Color YELLOW Urine Appearance CLEAR Urine pH (5.0 - 8.0) 5.0 Ur Specific [place] (1.010 - 1.030) 1.015 Urine Protein (NEGATIVE) NEGATIVE Urine Ketones (NEGATIVE) NEGATIVE Urine Blood (NEGATIVE) NEGATIVE Urine Nitrite (NEGATIVE) NEGATIVE Urine Bilirubin (NEGATIVE) NEGATIVE Urine Urobilinogen (0.2 - 1.0 EU/dL) 0.2 Ur Leukocyte Esterase (NEGATIVE) NEGATIVE Urine RBC (0 - 1 rbc/hpf) NONE SEEN Urine WBC (0 - 1 wbc/hpf) NONE SEEN Ur Epithelial Cells (0 - 5 EPI/hpf) 1-3 Urine Bacteria (NONE SEEN) NONE SEEN Urine Glucose (NEGATIVE) NEGATIVE Urine Comment CULT NOT INDICATED Assessment and Plan Problem List 1. Heart failure with acute decompensation, type unknown Plan Possibly related to his significant bradycardia on presentation. Currently on metolazone and lasix, and UOP has been good, but he is drinking too much during the day. Have placed him on fluid restriction, and will continue diuresis with goal of at least 1L net negative over the next 24hrs. No reported hx of CHF, and no previous echo in system, so I have also ordered an echo for this hospital stay to evaluate his cardiac function. 2. Bradycardia Plan Thought to be 2/2 his metoprolol XL. This has been held, and HR has been stable overnight into today. 3. COPD (chronic obstructive pulmonary disease) Plan Patient denies history, but noted in previous H&P a year ago. Will place on prn nebulizers. 4. A-fib Plan Holding metoprolol. Continue coumadin, goal INR 2-3 (holding tonight's dose due to INR of 3.9). 5. Diabetes mellitus Status Chronic Onset Date Unknown Plan Holding oral diabetic medications while in house. On SSI for now. FEN: cardiac, fluid restrict 1.2L PPx: on coumadin Code: per admitting physician's discussion w/ patient: CODE STATUS: THIS WAS DISCUSSED WITH THE PATIENT AND HIS DAUGHTER. HE AND SHE WOULD LIKE TO ATTEMPTED CARDIOPULMONARY RESUSCITATION BUT IF INITIAL CARDIOPULMONARY RESUSCITATION MAJORS ARE NOT EFFECTIVE AND IT SEEMS LIKE HE IS NOT LIKELY TO RESPOND THEN THEY WOULD PREFER NO FURTHER RESUSCITATIVE EFFORTS. WE WILL TRY TO FOLLOW THIS REQUEST IF THE SITUATION ARISES. Dispo: Pending continued need for IV diuretic therapy and cardiac monitoring, as above. E&M Codes Rounding: Inpt-High/[id number]
[2016-12-21 02:10] VITALS: BP 129/65
[2016-12-21 06:55] VITALS: BP 144/62
[2016-12-21 10:14] VITALS: BP 136/49
--- NOTE | 2016-12-21 13:04 | Progress Note ---
Subjective General Pt doing well througout the night, no overnight events. Patient feels as if his lower extrmemity swelling is improved however his scrotal swelling is becomming more pronounced. Patient otherwise has improved work of breathing. Constitutional Denies: Fever, Chills, Sweats, Weakness, Malaise, Other. Eyes Denies: Pain, Vision Change, Conjunctival Inflammation, Eyelid Inflammation, Redness, Other. ENT Denies: Ear Pain, Ear Discharge, Nose Pain, Nasal Discharge, Nasal Congestion, Mouth Pain, Mouth Swelling, Throat Pain, Throat Swelling, Other. Respiratory Cough, Dry, SOB w/exertion. Denies: Wheezing, Hemoptysis, Pleuritic Pain, Sputum. Cardiovascular Edema. Denies: Chest Pain, Palpitations, Orthopnea, PND, Light-headedness, Other. Gastrointestinal Denies: Nausea, Vomiting, Abdominal Pain, Diarrhea, Constipation, Melena, Hematochezia, Other. Genitourinary Denies: Dysuria, Frequency, Incontinence, Hematuria, Retention, Other. Musculoskeletal Denies: Neck Pain, Shoulder Pain, Arm Pain, Back Pain, Hand Pain, Leg Pain, Foot Pain, Other. Skin Denies: Rash, Lesions, Jaundice, Bruising, Other. Neurological Denies: Weakness, Numbness, Incoordination, Change in speech, Confusion, Seizures, Other. Physical Exam Vital Signs / I&Os Vital Signs Date Time Temp Pulse Resp B/P Pulse O2 O2 Flow FiO2 Ox Delivery Rate 12/21 1014 98.6 60 24 136/49 96 Nasal 2.0 Cannula 12/21 1000 2.0 12/21 0655 98.1 51 22 144/62 98 Nasal 2.0 Cannula 12/21 0210 98.4 54 18 129/65 96 Nasal 2.0 Cannula 12/20 2211 98.2 58 22 146/53 93 Nasal 2.0 Cannula 12/20 2016 2.0 12/20 2002 Nasal 2.0 Cannula 12/20 1838 98.8 54 22 143/45 96 Nasal 2.0 Cannula 12/20 1422 98.1 66 22 141/52 100 Nasal 2.0 Cannula I&O 12/20 0800 02/ 1600 02/06 0000 Intake Total 540 650 300 Output Total 300 1800 850 Balance 240 -1150 -550 General Appearance Alert, Oriented X3, No acute distress HEENT Normal exam, PERRLA, EOMI, Moist mucous membranes Lungs Normal exam, Clear to auscultation Neck Supple, No JVD Cardiovascular irregularly irregular rhythm, questionable S3 Abdomen Normal bowel sounds, Soft, No rebound, No masses Pelvic scrotal swelling Extremities Normal pulses, No tenderness, L leg edema >> R Right is improving no skin changes noted Skin No Rashes, No Breakdown Neurological Normal speech, Normal tone, Sensation intact, Strength 5/5 x4 ext's LAB Results Laboratory Tests 12/21 12/21 0500 0502 Chemistry Plasma Sodium (136 - 145 mmol/L) 144 Plasma Potassium (3.5 - 5.1 mmol/L) 4.1 Plasma Chloride (98 - 107 mmol/L) 109 CO2 (Enzymatic) (21 - 32 mmol/L) 28 BUN (7 - 18 mg/dL) 40 Creatinine (0.6 - 1.3 mg/dL) 1.4 Est GFR ( Amer) (mL/min) >60 Est GFR (Non-Af Amer) (mL/min) 51.44 Glucose (70 - 110 mg/dL) 125 Plasma Calcium (8.5 - 10.1 mg/dL) 8.0 Plasma Magnesium (1.8 - 2.4 mg/dL) 2.2 Coagulation INR (0.8 - 1.2) 2.7 Hematology WBC (4.5 - 11.5 K/uL) 3.4 RBC (4.50 - 5.90 M/uL) 2.72 Hgb (13.5 - 17.5 gm/dL) 8.7 Hct (41.0 - 53.0 %) 26.9 MCV (80 - 100 fL) 99 MCH (26 - 34 pg) 32 RDW (11.6 - 14.8 %) 19.7 Neut % (Auto) (50 - 75 %) 75.1 Lymph % (Auto) (25 - 40 %) 9.2 [place] % (Auto) (3 - 14 %) 13.6 Eos % (Auto) (0 - 4 %) 1.8 Baso % (Auto) (0 - 2 %) 0.3 Plt Count, EDTA (150 - 400 K/uL) 119 PUBS MCHC (31 - 37 g/dL) 32 Assessment and Plan Problem List 1. Heart failure with acute decompensation, type unknown Plan - unknown etioloy behind sudden decompensation - unsure to as whether this is secondary to beta esmer use - will obtain echo cardiogram today - will keep pt on telemetry monitoring - will continue with aggressive diuresis- will switch lasix to bid 2. Bradycardia Plan - pt has occasional runs of bradycardia - no hypotension associated - the longest run noted was 5-10 beats, however pt reverts to sinus immediately after - will continue to monitor - if continues will need cardiology 3. COPD (chronic obstructive pulmonary disease) Plan - currently stable 4. Hypertension Status Chronic Onset Date Unknown Plan - stable will continue with medications as listed
[2016-12-21 14:38] VITALS: BP 143/54
[2016-12-21 18:16] VITALS: BP 166/54
[2016-12-21 22:40] VITALS: BP 151/62
[2016-12-22] VITALS (7 sets, daily range): BP systolic 141–171; BP diastolic 55–64
--- NOTE | 2016-12-22 12:40 | DIAGNOSTIC IMAGING REPORT ---
REFERRING PHYSICIAN/PROVIDER: Alina Dominguez MD CONSULTING INSOLE BEVELER: Livan Herrera MD PROCEDURE: M-mode 2D echocardiography with spectral and color flow Doppler TECHNICAL QUALITY: Study quality was technically adequate. INDICATION: decompensated heart failure, no EF in system. RHYTHM DURING PROCEDURE: The patient was in atrial fibrillation with controlled ventricular rate during the exam. INTERPRETATIONS: LEFT VENTRICLE: The left ventricle is normal in size. There is moderate proximal septal thickening noted. There is no echo evidence for significant left ventricular outflow tract obstruction. Left ventricular systolic function is normal without focal wall motion abnormalities. The ejection fraction is estimated to be 55-60%. Diastolic function could not be accurately assessed due to atrial fibrillation. RIGHT VENTRICLE: The right ventricle is moderately dilated. The right ventricular systolic function is at the lower limits of normal. ATRIA: The left atrium is severely dilated at 59.6 ml per meter squared. The right atrium is grossly severely dilated. A patent foramen ovale cannot be completely excluded. MITRAL VALVE: There is mild to moderate mitral annular calcification. There is mild calcification extending into the subvalvular apparatus. There is evidence for at least mild mitral stenosis. The mitral valve mean gradient is 5 mmHg. There is mild mitral regurgitation. AORTIC VALVE: The aortic valve is trileaflet. Aortic valve is mildly calcified. There is no hemodynamically significant valvular aortic stenosis. The aortic valve area is 2.23 cm squared by 0.3. The aortic valve area calculated by the continuity equation is 1.5 cm2. The peak velocity is 2.01 meters per second. The aortic valve mean gradient is 8.2 mmHg. There is mild aortic regurgitation. TRICUSPID VALVE: The tricuspid valve leaflets are thin and pliable. The tricuspid annulus is dilated. There is moderate to severe tricuspid regurgitation. The right ventricular systolic pressure is estimated at 75 mmHg assuming a right atrial pressure of 15 mmHg. PULMONIC VALVE: The pulmonic valve is not well seen but is grossly normal. There is trace or physiologic amount of pulmonic regurgitation. GREAT VESSELS: The aorta root is mildly dilated. It is measured at 4.0 cm. The ascending aorta is mild to moderately enlarged at 3.9 cm. The IVC is dilated and collapses less than 50% the sniff. This suggests a high right atrial pressure of 15 mmHg. PERICARDIUM: There is no pericardial fusion. IMPRESSION: 1. There is normal LV systolic function and low normal RV systolic function. There is evidence for significant RV dilatation and severe pulmonary hypertension with estimated right ventricular systolic pressure measured at 75 mmHg. 2. The left atrium is severely dilated as well as the right atrium. A PFO could not be completely excluded. 3. The aortic valve is at worse mildly stenotic. There is mild aortic regurgitation. 4. There is at least moderate to severe tricuspid regurgitation. 5. The aortic root and the ascending aorta are both dilated at 4.0 cm 3.9 cm respectively.
--- NOTE | 2016-12-22 17:39 | Progress Note ---
Subjective General Pt doing well, patient had very good diuresis last night, and put out almost 3 liters. Patient is currently feeling much better. Constitutional Denies: Fever, Chills, Sweats, Weakness, Malaise, Other. Eyes Denies: Pain, Vision Change, Conjunctival Inflammation, Eyelid Inflammation, Redness, Other. ENT Denies: Ear Pain, Ear Discharge, Nose Pain, Nasal Discharge, Nasal Congestion, Mouth Pain, Mouth Swelling, Throat Pain, Throat Swelling, Other. Respiratory SOB w/exertion. Denies: Cough, Dry, Wheezing, Hemoptysis, Pleuritic Pain, Sputum, Other. Cardiovascular Edema. Denies: Chest Pain, Palpitations, Orthopnea, PND, Light-headedness, Other. Gastrointestinal Denies: Nausea, Vomiting, Abdominal Pain, Diarrhea, Constipation, Melena, Hematochezia, Other. Genitourinary Denies: Dysuria, Frequency, Incontinence, Hematuria, Retention, Other. Musculoskeletal Denies: Neck Pain, Shoulder Pain, Arm Pain, Back Pain, Hand Pain, Leg Pain, Foot Pain, Other. Physical Exam Vital Signs / I&Os Vital Signs Date Time Temp Pulse Resp B/P Pulse O2 O2 Flow FiO2 Ox Delivery Rate 12/22 1447 98.1 67 22 146/61 100 Nasal Cannula 12/22 1025 97.7 60 22 148/55 98 Nasal 2.0 Cannula 12/22 0820 2.0 12/22 0657 98.4 57 21 171/64 98 Nasal 2.0 Cannula 12/22 0532 97.9 66 20 155/58 96 Nasal 2.0 Cannula 12/22 0214 97.9 62 20 141/57 96 Nasal 2.0 Cannula 12/21 2240 97.5 18 151/62 98 CPAP 2.0 12/21 1955 2.0 12/21 1933 52 12/21 1926 2.0 12/21 1816 98.4 58 20 166/54 98 Nasal 2.0 Cannula I&O 12/21 0800 02/ 1600 12/22 0000 Intake Total 250 420 400 Output Total 950 2225 975 Balance -700 -1805 -575 General Appearance Alert, Oriented X3, No acute distress HEENT Normal exam, Moist mucous membranes Lungs Clear to auscultation, Normal air movement Neck Supple, No JVD Cardiovascular Regular rate and rhythm, Normal S1 and S2, No murmurs, gallops, rubs Abdomen Normal bowel sounds, Soft Extremities No tenderness, edema is improving significantly, scrotal swelling is improved immensely Skin No Rashes, No Breakdown Psych/Mental Status Mental status normal LAB Results Laboratory Tests 12/22 05 Chemistry Plasma Sodium (136 - 145 mmol/L) 147 Plasma Potassium (3.5 - 5.1 mmol/L) 4.2 Plasma Chloride (98 - 107 mmol/L) 109 CO2 (Enzymatic) (21 - 32 mmol/L) 31 BUN (7 - 18 mg/dL) 33 Creatinine (0.6 - 1.3 mg/dL) 1.0 Est GFR ( Amer) (mL/min) >60 Est GFR (Non-Af Amer) (mL/min) >60 Glucose (70 - 110 mg/dL) 138 Plasma Calcium (8.5 - 10.1 mg/dL) 8.0 Total Bilirubin (0.0 - 1.0 mg/dL) 0.6 AST (15 - 37 U/L) 25 ALT (12 - 78 U/L) 28 Alkaline Phosphatase (46 - 116 U/L) 102 Total Protein (6.4 - 8.2 g/dL) 5.3 Albumin (3.3 - 5.0 g/dL) 2.7 Coagulation INR (0.8 - 1.2) 2.1 Assessment and Plan Problem List 1. 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 COPD (chronic obstructive pulmonary disease) Plan - stable - no complications with breathing - c/w home medications 3. Diabetes mellitus Status Chronic Onset Date Unknown Plan - stable - c/w regimen 4. Hypertension Status Chronic Onset Date Unknown Plan - stable - avoid beta blockers in the future
[2016-12-23 03:20] VITALS: BP 130/61
[2016-12-23 06:33] VITALS: BP 148/55
[2016-12-23 10:12] VITALS: BP 163/69
--- NOTE | 2016-12-23 13:46 | Progress Note ---
Subjective General Pt doing very well overnight. Patient had put out 6 liters of fluid overall. Patient additionally has an easier work of breathing. Constitutional Denies: Fever, Chills, Sweats, Weakness, Malaise, Other. Eyes Denies: Pain, Vision Change, Conjunctival Inflammation, Eyelid Inflammation, Redness, Other. ENT Denies: Ear Pain, Ear Discharge, Nose Pain, Nasal Discharge, Nasal Congestion, Mouth Pain, Mouth Swelling, Throat Pain, Throat Swelling, Other. Respiratory SOB w/exertion. Denies: Cough, Dry, Wheezing, Hemoptysis, Pleuritic Pain, Sputum, Other. Cardiovascular Orthopnea, Edema. Denies: Chest Pain, Palpitations, PND, Light-headedness, Other. Gastrointestinal Denies: Nausea, Vomiting, Abdominal Pain, Diarrhea, Constipation, Melena, Hematochezia, Other. Genitourinary Denies: Dysuria, Frequency, Incontinence, Hematuria, Retention, Other. Musculoskeletal Denies: Neck Pain, Shoulder Pain, Arm Pain, Back Pain, Hand Pain, Leg Pain, Foot Pain, Other. Neurological Denies: Weakness, Numbness, Incoordination, Change in speech, Confusion, Seizures, Other. Physical Exam Vital Signs / I&Os Vital Signs Date Time Temp Pulse Resp B/P Pulse O2 O2 Flow FiO2 Ox Delivery Rate 12/23 1012 97.5 90 18 163/69 96 Room Air 12/23 0900 Nasal 1.0 Cannula 12/23 0633 97.5 70 18 148/55 97 Nasal 2.0 Cannula 12/23 0320 98.2 58 16 130/61 96 Nasal 1.0 Cannula 12/22 2227 98.1 67 18 146/57 95 Nasal 1.0 Cannula 12/22 2200 Nasal 1.0 Cannula 12/22 1905 98.2 66 22 168/60 96 Nasal 1.0 Cannula 12/22 1447 98.1 67 22 146/61 100 Nasal Cannula I&O 12/22 0800 02 1600 08 0000 Intake Total 80 370 400 Output Total 882 4032 7996 Balance -895 -4306 -826 General Appearance Alert, Oriented X3, No acute distress HEENT Atraumatic, PERRLA, Moist mucous membranes Lungs Clear to auscultation, Normal air movement Neck Supple Cardiovascular Regular rate and rhythm, Normal S1 and S2, No murmurs, gallops, rubs Abdomen No tenderness, No guarding Extremities No edema, Normal pulses, No tenderness Skin No Breakdown, No Significant Lesions Neurological Normal speech, Normal tone, Strength 5/5 x4 ext's Psych/Mental Status Mental status normal LAB Results Laboratory Tests 12/23 0530 Chemistry Plasma Sodium (136 - 145 mmol/L) 146 Plasma Potassium (3.5 - 5.1 mmol/L) 3.9 Plasma Chloride (98 - 107 mmol/L) 106 CO2 (Enzymatic) (21 - 32 mmol/L) 34 BUN (7 - 18 mg/dL) 27 Creatinine (0.6 - 1.3 mg/dL) 0.9 Est GFR ( Amer) (mL/min) >60 Est GFR (Non-Af Amer) (mL/min) >60 Glucose (70 - 110 mg/dL) 121 Plasma Calcium (8.5 - 10.1 mg/dL) 7.9 Total Bilirubin (0.0 - 1.0 mg/dL) 1.0 AST (15 - 37 U/L) 27 ALT (12 - 78 U/L) 32 Alkaline Phosphatase (46 - 116 U/L) 99 Total Protein (6.4 - 8.2 g/dL) 5.2 Albumin (3.3 - 5.0 g/dL) 2.6 Coagulation INR (0.8 - 1.2) 1.8 Hematology WBC (4.5 - 11.5 K/uL) 4.6 RBC (4.50 - 5.90 M/uL) 2.80 Hgb (13.5 - 17.5 gm/dL) 9.0 Hct (41.0 - 53.0 %) 27.4 MCV (80 - 100 fL) 98 MCH (26 - 34 pg) 32 RDW (11.6 - 14.8 %) 19.4 Neut % (Auto) (50 - 75 %) 72.3 Lymph % (Auto) (25 - 40 %) 11.4 Lyon % (Auto) (3 - 14 %) 13.6 Eos % (Auto) (0 - 4 %) 2.4 Baso % (Auto) (0 - 2 %) 0.3 Plt Count, EDTA (150 - 400 K/uL) 123 PUBS MCHC (31 - 37 g/dL) 33 Assessment and Plan Problem List 1. Tricuspid regurgitation Plan - pt found to have moderate to sever tricupsid regurgitation on echo - preserved ejection fraction and appropriate blood pressure - given incomptetent valve patient will need to avoid beta blockers - will continue with diuresis - will make an appointment with neuropsychiatrist as an out pt 2. Heart failure with acute decompensation, type unknown Plan - decompensation secondary to beta esmer use - will avoid in the future - will continue with diuresis - echo shows preserved EF - pt needs cardiology follow up 3. A-fib Plan - currently rate controlled - will continue with coumadin - daily inr monitoring 4. Chronic anticoagulation Status Chronic Onset Date Unknown Plan - inr subtherapeutic - warfarin dosing as per pharmacy - will continue to obtain daily inrs 5. Hypertension Status Chronic Onset Date Unknown Plan -c/w home meds
[2016-12-23 14:30] VITALS: BP 152/59
[2016-12-23 18:32] VITALS: BP 149/59
[2016-12-23 22:34] VITALS: BP 145/67
[2016-12-24 02:11] VITALS: BP 141/68
[2016-12-24 06:42] VITALS: BP 156/71
[2016-12-24 11:06] VITALS: BP 155/73
[2016-12-24 14:45] VITALS: BP 184/81
[2016-12-24] MEDS ORDERED: COUMADIN2.5 MG PO (14:54)
[2016-12-24] MEDS ORDERED: WARFARIN SODIUM5 MG PO (14:55)
[2016-12-24] MEDS ORDERED: FUROSEMIDE40 MG PO (15:17)
--- NOTE | 2016-12-24 16:18 | Discharge Summary ---
Discharge Summary Report Admit Date 12/19/16 Discharge Date 12/24/16 Admission Diagnosis acute chf exacerbation Discharge Diagnosis tricuspid regurgitation, chf exacerbation and fluid overload Brief History The patient is an 81-year-old white male who [facility] difficulties with shortness of breath. This has been a problem that has been gradually worsening over the last several days. He has had a slight dry cough, particularly over the last 24 hours or so. He apparently spent about 2 hours in the night of 12/17/2016 to 12/18/2016 sitting up reading due to restlessness and shortness of breath. He has had some decreased exercise tolerance during the day. He denies chest pain. He has had no fever or chills. He does have a history of chronic atrial fibrillation and is on Coumadin. He has had no obvious bleeding. He has been started on metoprolol several weeks ago when he was discharged from [facility] to a [facility] for [facility] following back surgery. In addition to shortness of breath, he has noticed quite significant lower abdominal wall and penile and scrotal edema, developing over the last week or so. Hospital Course Pt was admitted for chf exacerbation of unknown etiology. Patient upon arrival was actively diuresed with two agent and had appropriate results. Patient was seen to put upwards of 10 liters througout his entire admission. Patient continued to progress well, and have decreased work of breathing, less edema, and less scrotal swelling. Patient had an echocardiogram which showed a very poor tricuspid valve, elevated right heart pressures and increased pulmonary hypertension. Despite this patient had preserved ejection fraction. Patient continued to diurese well and felt symptomatically better. Patient continued to progress well. Patient at this time will be discharged from the hospital. Patient will follow up with his pmd and obtain a boiler or engine operator appointment as soon as possible. General Appearance Alert, Oriented X3, No acute distress Lungs Clear to auscultation Cardiovascular Gallops, diastolic murmur present Abdomen Soft, No tenderness Skin No Rashes, No Breakdown Discharge Instructions/Meds - follow up with pmd - obtain boiler or engine operator appointment - take medications as prescribed - do not take in more than 1 liter of fluid a day
--- NOTE | 2016-12-24 16:18 | Discharge Summary ---
Discharge Summary Report Admit Date 12/19/16 Discharge Date 12/24/16 Admission Diagnosis acute chf exacerbation Discharge Diagnosis tricuspid regurgitation, chf exacerbation and fluid overload Brief History The patient is an 81-year-old white male who [facility] with shortness of breath. This has been a problem that has been gradually worsening over the last several days. He has had a slight dry cough, particularly over the last 24 hours or so. He apparently spent about 2 hours in the night of 12/17/2016 to 12/18/2016 sitting up reading due to restlessness and shortness of breath. He has had some decreased exercise tolerance during the day. He denies chest pain. He has had no fever or chills. He does have a history of chronic atrial fibrillation and is on Coumadin. He has had no obvious bleeding. He has been started on metoprolol several weeks ago when he was discharged from [facility] [place] [facility] following back surgery. In addition to shortness of breath, he has noticed quite significant lower abdominal wall and penile and scrotal edema, developing over the last week or so. Hospital Course Pt was admitted for chf exacerbation of unknown etiology. Patient upon arrival was actively diuresed with two agent and had appropriate results. Patient was seen to put upwards of 10 liters througout his entire admission. Patient continued to progress well, and have decreased work of breathing, less edema, and less scrotal swelling. Patient had an echocardiogram which showed a very poor tricuspid valve, elevated right heart pressures and increased pulmonary hypertension. Despite this patient had preserved ejection fraction. Patient continued to diurese well and felt symptomatically better. Patient continued to progress well. Patient at this time will be discharged from the hospital. Patient will follow up with his pmd and obtain a surgical nurse appointment as soon as possible. General Appearance Alert, Oriented X3, No acute distress Lungs Clear to auscultation Cardiovascular Gallops, diastolic murmur present Abdomen Soft, No tenderness Skin No Rashes, No Breakdown Discharge Instructions/Meds - follow up with pmd - obtain surgical nurse appointment - take medications as prescribed - do not take in more than 1 liter of fluid a day
== END 2016-12-24 16:08 | disposition home health service (06) | DRG 293 ==
LOC: ED SRH 00:28 → TRANS SRH 03:06 → ACUTE2 SRH 04:18
PROVIDERS: ADMIT Family Medicine
DX: I11.0 Hypertensive heart disease with heart failure (principal); I50.33 Acute on chronic diastolic (congestive) heart failure; R00.1 Bradycardia, unspecified; I95.2 Hypotension due to drugs; T44.7X5A Adverse effect of beta-adrenoreceptor antagonists, initial encounter; I07.1 Rheumatic tricuspid insufficiency; I27.2 Other secondary pulmonary hypertension; I48.2 Chronic atrial fibrillation; Z79.01 Long term (current) use of anticoagulants; J84.10 Pulmonary fibrosis, unspecified; J44.9 Chronic obstructive pulmonary disease, unspecified; E11.9 Type 2 diabetes mellitus without complications; Z79.84 Long term (current) use of oral hypoglycemic drugs
CPT/HCPCS: 29230; 83483; 85241; 85244; 90004; 90047; 90074; 90098; 90100; 90616; 91320; 91556; 92720; 93140; 94001; 94060; 95059